=== PATIENT | female | born 1985 | race American Indian/Alaskan Native ===

== ENCOUNTER 2020-03-07 21:06 | Emergency (ER) | payer SELFPAY ==
[2020-03-07 22:39] VITALS: BP 116/71
[2020-03-07] MEDS ORDERED: dexAMETHasone 4 MG/ML VIAL IM ONE (23:45)
--- NOTE | 2020-03-07 23:46 | Emergency Department Report ---
Minor Respiratory - HPI Chief Complaint: Sore Throat Stated Complaint: THROAT PAIN CAN HARDLY TALK Time Seen by Provider: 03/07/20 23:41 Duration: 2 Days Pain Location: Throat Severity: moderate Minor Respiratory: Yes Sore Throat, Yes Able to Tolerate Fluids, No Rhinorrhea, No Ear Pain, No Cough, No Sick Contacts, No Hemoptysis, No Chest Pain, No Shortness of Breath, No Fever Other History: Patient is a 34-year-old -[place] female who comes to the emergency department with a 2-day history of sore throat. She initially states that she is having trouble talking. However, she then began speaking without difficulty. During initial exam she was sitting there with a cup of ice water drinking. She denies any fever or chills. She has no tachycardia or hypertension on arrival. She denies ill contacts. She has no hypoxia on triage exam. She is ambulatory in [facility]. ED Review of Systems ROS: Stated complaint: THROAT PAIN CAN HARDLY TALK Other details as noted in HPI Comment: All other systems reviewed and negative ED Past Medical Hx - Past Medical History Previous Medical History?: No - Surgical History Past Surgical History?: No - Family History Family history: no significant - Social History Smoking Status: Never Smoker Substance Use Type: None - Medications Home Medications: Home Medications Medication Instructions Recorded Confirmed Last Taken Type Amoxicillin [Trimox CAP] 500 mg PO BID #20 capsule 03/08/20 Unknown Rx Fluconazole [Diflucan TAB] 100 mg PO QDAY #2 tablet 03/08/20 Unknown Rx predniSONE [Deltasone] 20 mg PO DAILY #5 tablet 03/08/20 Unknown Rx Minor Respiratory Exam - Exam General: Vital signs noted. No distress. Alert and acting appropriately. HEENT: Yes Pharyngeal Erythema, Yes Moist Mucous Membranes, No Pharyngeal Exudates, No Rhinorrhea, No Conjuctival Injection, No Frontal Tenderness, No Maxillary Tenderness Ear: Neither TM Bulge, Neither TM Erythema, Neither EAC Pain, Neither EAC Discharge Neck: Yes Supple, No Adenopathy Lungs: Yes Good Air Exchange, No Wheezes, No Ronchi, No Stridor, No Cough, No Labored Respirations, No Retractions, No Use of Accessory Muscles, No Other Abnormal Lung Sounds Heart: Yes Regular, No Murmur Abdomen: Yes Normal Bowel Sounds, No Tenderness, No Peritoneal Signs Skin: No Rash, No Edema Neurologic: Alert and oriented, no deficits. Musculoskeletal: Unremarkable. ED Course Vital Signs 03/07/20 21:42 Temperature 98.9 F Pulse Rate 91 H Respiratory 18 Rate Blood Pressure 116/71 O2 Sat by Pulse 100 Oximetry ED Medical Decision Making - Medical Decision Making Patient complains of sore throat. She denies any chest pain or shortness of breath. Denies fever or chills. rapid strep pending. decadron/pcn IM in ER Vital Signs 03/07/20 21:42 Temperature 98.9 F Pulse Rate 91 H Respiratory 18 Rate Blood Pressure 116/71 O2 Sat by Pulse 100 Oximetry Uvula is midline. There is no exudates. Patient is taking p.o. She is controlling secretions. There is no trismus. Her exam is otherwise unremarkable. Patient being discharged home with discharge plan of care. Patient understands the importance of her plan of care. She verbalizes understanding of medications, follow-up and the importance of hydration. On discharge patient is nontoxic [id number] and in no acute distress. - Differential Diagnosis pharnyngitis strep v other pathogen Critical care attestation.: If time is entered above; I have spent that time in minutes in the direct care of this critically ill patient, excluding procedure time. ED Disposition Clinical Impression: Pharyngitis, Uvulitis Disposition: DC-01 TO HOME OR SELFCARE Is pt being admited?: No Does the pt Need Aspirin: No Condition: Stable Instructions: Upper Respiratory Infection, Adult, [id number] Additional Instructions: med as ordered today motrin or tylenol for pain stay well hydrated it is important that you follow up with pcp in 48 hours for recheck to be sure you are responding to meds Prescriptions: predniSONE [Deltasone] 20 mg PO DAILY #5 tablet Fluconazole [Diflucan TAB] 100 mg PO QDAY #2 tablet Amoxicillin [Trimox CAP] 500 mg PO BID #20 capsule Referrals: PIPER BROWN MD [Staff Physician] - 3-5 Days Time of Disposition: 23:59
[2020-03-07] MEDS ORDERED: PENICILLIN G BENZATHINE 1.2 MILLION UNIT/2 ML INJ IM ONE (23:53)
== END 2020-03-08 00:50 | disposition home or self-care (01) ==
LOC: ED 21:06
DX: J02.9 Acute pharyngitis, unspecified (principal); K12.2 Cellulitis and abscess of mouth; Z79.899 Other long term (current) drug therapy
CPT/HCPCS: 87116; 87430; 96372; 99283; J0561; J1100

== ENCOUNTER 2020-04-05 22:02 | Emergency (ER) | payer SELFPAY ==
[2020-04-05 22:17] VITALS: BP 137/90
== END 2020-04-05 22:17 | disposition left against medical advice (07) ==
LOC: ED 22:02
DX: A64 Unspecified sexually transmitted disease (principal); Z53.21 Procedure and treatment not carried out due to patient leaving prior to being seen by health care provider

== ENCOUNTER 2020-05-11 01:22 | Emergency (ER) | payer SELFPAY ==
[2020-05-11 04:31] LABS: Alanine Aminotransferase 12 units/L (7-56); Albumin 4.4 g/dL (3.9-5); Blood Urea Nitrogen 10 mg/dL (7-17); Calcium 9.3 mg/dL (8.4-10.2); Hemolysis Index 2
[2020-05-11 04:33] LABS: Bacteria,Urine 1+ /HPF (Negative); Bilirubin,Urine NEG (Negative); Blood,Urine SM (Negative); Color,Urine Yellow (Yellow); Mucus,Urine FEW /HPF; Protein,Urine <15 mg/dL mg/dL (Negative); Urobilinogen,Urine < 2.0 mg/dL (<2.0)
[2020-05-11 04:35] LABS: BUN/Creatinine Ratio 14
[2020-05-11 04:37] LABS: Hematocrit 37.7 % (30.3-42.9); Mean Corpuscular HGB Conc 34 % (30-34); Mean Corpuscular Volume 84 fl (79-97); Platelet Count 296 K/mm3 (140-440); Red Blood Count 4.52 M/mm3 (3.65-5.03); Red Cell Distribution Width 15.2 % (13.2-15.2)
[2020-05-11 05:25] LABS: Basophils % (Auto) 0.6 % (0.0-1.8); Eosinophils # (Auto) 0.1 K/mm3 (0.0-0.4); Eosinophils % (Auto) 1.1 % (0.0-4.3); Lymphocytes # (Auto) 2.8 K/mm3 (1.2-5.4); Lymphocytes % (Auto) 35.4 % (13.4-35.0); Monocytes # (Auto) 0.6 K/mm3 (0.0-0.8); Monocytes % (Auto) 7.4 % (0.0-7.3)
--- NOTE | 2020-05-11 06:20 | Emergency Department Report ---
ED General Adult HPI - General Chief complaint: Abdominal Pain Stated complaint: SHARP PAIN ON SIDE & REPRODUCTIVE AREA PUI?: No Time Seen by Provider: 05/11/20 06:06 Source: patient, RN notes reviewed, old records reviewed Mode of arrival: Ambulatory Limitations: No Limitations - History of Present Illness Initial comments: The patient was evaluated in the emergency department for symptoms described in the history of present illness. He/she was evaluated in the context of the global COVID-19 pandemic, which necessitated consideration that the patient might be at risk for infection with the virus that causes COVID-19. In stitutional protocols and algorithms that pertain to the evaluation of patients at risk for COVID-19 are in a state of rapid change based on information released by regulatory bodies including the CDC and federal and state organizations. These policies and algorithms were followed during the patient's care in the emergency department. Please note that these policies, procedures and recommendations changed on a rapid basis. This is a 34-year-old female. She is not known to myself previously. She does not have a local primary care doctor. She has a history of chlamydia that was diagnosed last year. She otherwise denies chronic medical conditions, and only surgical history is for section. During the entire history and physical examination, I am chaperoned and escorted by nurse Tan Ledesma The patient presents to the ER with a primary complaint of abdominal pain. She reports right upper quadrant pain for 1 year, left upper quadrant pain for 1 year, and lower/right lower quadrant abdominal pain for 2 days. No headache, neck pain, chest pain, shortness of breath, positive dysuria, negative for loss of taste or smell, no extremity complaints. Patient reports more than 20 sexual partners in the past 6 months. -: Gradual, hour(s), year(s) Location: abdomen Radiation: non-radiation Severity scale (0 -10): 6 Quality: aching Consistency: intermittent Improves with: rest Worsens with: movement - Related Data Previous Rx's Medication Instructions Recorded Last Taken Type Acetaminophen [Non-Aspirin Extra 500 mg PO Q6HR PRN #30 tablet 05/11/20 Unknown Rx Strength] DOXYCYCLINE Hyclate [Vibramycin] 100 mg PO Q12HR #20 capsule 05/11/20 Unknown Rx Ibuprofen [Motrin] 400 mg PO Q8H PRN #30 tablet 05/11/20 Unknown Rx Morphine Sulfate [Morphine Sulfate 7.5 mg PO Q6HR PRN #10 tablet 05/11/20 Unknown Rx IR] Ondansetron [Zofran Odt] 4 mg PO Q8HR PRN #20 tab.rapdis 05/11/20 Unknown Rx Allergies Allergy/AdvReac Type Severity Reaction Status Date / Time No Known Allergies Allergy Verified 04/05/20 22:17 ED Review of Systems ROS: Stated complaint: SHARP PAIN ON SIDE & REPRODUCTIVE AREA Other details as noted in HPI Constitutional: denies: fever Eyes: denies: eye discharge ENT: denies: throat pain, epistaxis Respiratory: denies: cough Cardiovascular: denies: chest pain Gastrointestinal: abdominal pain Genitourinary: dysuria Musculoskeletal: denies: back pain Skin: denies: lesions Neurological: denies: weakness Hematological/Lymphatic: denies: easy bleeding ED Past Medical Hx - Past Medical History Previous Medical History?: No - Surgical History Past Surgical History?: Yes Additional Surgical History: x1 - Social History Smoking Status: Current Every Day Smoker Substance Use Type: None - Medications Home Medications: Home Medications Medication Instructions Recorded Confirmed Last Taken Type Acetaminophen [Non-Aspirin Extra 500 mg PO Q6HR PRN #30 tablet 05/11/20 Unknown Rx Strength] DOXYCYCLINE Hyclate [Vibramycin] 100 mg PO Q12HR #20 capsule 05/11/20 Unknown Rx Ibuprofen [Motrin] 400 mg PO Q8H PRN #30 tablet 05/11/20 Unknown Rx Morphine Sulfate [Morphine Sulfate 7.5 mg PO Q6HR PRN #10 tablet 05/11/20 Unknown Rx IR] Ondansetron [Zofran Odt] 4 mg PO Q8HR PRN #20 tab.rapdis 05/11/20 Unknown Rx ED Physical Exam - General Limitations: No Limitations General appearance: alert, in no apparent distress - Head Head exam: Present: atraumatic, normocephalic - Eye Eye exam: Present: normal appearance, EOMI. Absent: nystagmus - ENT ENT exam: Present: normal exam, normal orophraynx, mucous membranes moist, normal external ear exam - Neck Neck exam: Present: normal inspection, full ROM. Absent: tenderness, meningismus - Respiratory Respiratory exam: Present: normal lung sounds bilaterally. Absent: respiratory distress, wheezes, rales, rhonchi, stridor, decreased breath sounds - Cardiovascular Cardiovascular Exam: Present: regular rate, normal rhythm, normal heart sounds. Absent: bradycardia, tachycardia, irregular rhythm, systolic murmur, diastolic murmur, rubs, gallop - GI/Abdominal GI/Abdominal exam: Present: soft, tenderness (The right lower quadrant is tender to deep palpation). Absent: distended, guarding, rebound, rigid, pulsatile mass - External exam: Present: normal external exam, other (Chaperoned by nurse Tan Ledesma) Speculum exam: Present: vaginal discharge, cervical discharge. Absent: erythema, vaginal bleeding Bi-manual exam: Present: cervical motion tendernes, adnexal tenderness, uterine tenderness - Extremities Exam Extremities exam: Present: normal inspection, full ROM, other (2+ pulses noted in the bilateral upper and lower extremities. There is no palpable cord. negative Homans sign. Muscular compartments are soft. The pelvis is stable.). Absent: pedal edema, calf tenderness - Back Exam Back exam: Present: normal inspection, full ROM. Absent: tenderness, CVA tenderness (R), CVA tenderness (L), paraspinal tenderness, vertebral tenderness - Neurological Exam Neurological exam: Present: alert, oriented X3, normal gait, other (No facial droop. Tongue midline. Extraocular movements intact bilaterally. Facial sens ation intact to light touch in V1, V2, V3 distribution bilaterally. 5 and a 5 strength in 4 extremities. Sensation intact to light touch in 4 extremities.). Absent: motor sensory deficit - Psychiatric Psychiatric exam: Present: normal affect, normal mood - Skin Skin exam: Present: warm, dry, intact, normal color. Absent: rash ED Course Vital Signs 05/11/20 05/11/20 05/11/20 03:02 06:05 07:21 Temperature 98.8 F Pulse Rate 73 77 Respiratory 16 18 16 Rate Blood Pressure 122/72 Blood Pressure 131/80 [Right] O2 Sat by Pulse 98 99 Oximetry 05/11/20 05/11/20 07:23 08:31 Temperature Pulse Rate 88 77 Respiratory 16 16 Rate Blood Pressure Blood Pressure 122/82 108/70 [Right] O2 Sat by Pulse 99 99 Oximetry - Reevaluation(s) Reevaluation #1: 05/11/20 06:59 Differential diagnosis, including but not limited to: Pelvic inflammatory disease, appendicitis, ovarian cyst, ovarian torsion, tubo-ovarian abscess Assessment and plan: 34-year-old female with abdominal pain, acute on chronic, with exquisite right lower quadrant tenderness, delia pus noted from gynecologic organs, very suggestive of pelvic inflammatory disease. We will start her empirically on antibiotic therapy. Wet prep, gonorrhea, chlamydia cultures have been ordered. We will treat the patient's symptoms aggressively, make her nothing by mouth, and place her on a threat monitoring analyst. We will obtain CT scan of the abdomen pelvis and pelvic ultrasound to exclude surgical pathology. I have discussed this plan of care with the patient, who verbalized understanding. Reevaluation #2: 05/11/20 08:01 Ultrasound, CT scan of the abdomen pelvis reviewed and appreciated. No acute surgical disease is identified. Bladder ultrasound findings are reviewed and appreciated. Urinalysis reviewed and appreciated. Suspect there may be a component of chlamydia cystitis. Patient tolerating liquid feeds at this time. Discharged with appropriate antibiotics, instructions to obtain from sexual contact, and follow-up with outpatient [facility]. Renal calculus asymptomatic, this is an incidental finding. Supportive care. Ovarian cyst appreciated, not suggestive of torsion. ED Medical Decision Making - Lab Data Result diagrams: 05/11/20 03:43 05/11/20 03:43 Vital Signs 05/11/20 05/11/20 03:02 06:05 Temperature 98.8 F Pulse Rate 73 77 Respiratory 16 18 Rate Blood Pressure 122/72 Blood Pressure 131/80 [Right] O2 Sat by Pulse 98 99 Oximetry Lab Results 05/11/20 05/11/20 05/11/20 Range/Units 03:43 03:43 03:43 WBC 8.0 (4.5-11.0) K/mm3 RBC 4.52 (3.65-5.03) M/mm3 Hgb 13.0 (10.1-14.3) gm/dl Hct 37.7 (30.3-42.9) % MCV 84 (79-97) fl MCH 29 (28-32) pg MCHC 34 (30-34) % RDW 15.2 (13.2-15.2) % Plt Count 296 (140-440) K/mm3 Lymph % (Auto) 35.4 H (13.4-35.0) % [place] % (Auto) 7.4 H (0.0-7.3) % Eos % (Auto) 1.1 (0.0-4.3) % Baso % (Auto) 0.6 (0.0-1.8) % Lymph # (Auto) 2.8 (1.2-5.4) K/mm3 [place] # (Auto) 0.6 (0.0-0.8) K/mm3 Eos # (Auto) 0.1 (0.0-0.4) K/mm3 Baso # (Auto) 0.0 (0.0-0.1) K/mm3 Add Manual Diff Complete Seg Neutrophils % 55.5 (40.0-70.0) % Nucleated RBC % Not Reportable Seg Neutrophils # 4.3 (1.8-7.7) K/mm3 WBC Morphology Not Reportable Hypersegmented Neuts Not Reportable Hyposegmented Neuts Not Reportable Hypogranular Neuts Not Reportable Smudge Cells Not Reportable Toxic Granulation Not Reportable Toxic Vacuolation Not Reportable Dohle Bodies Not Reportable Pelger-Huet Anomaly Not Reportable Adolph Rods Not Reportable Platelet Estimate Not Reportable Clumped Platelets Not Reportable Plt Clumps, EDTA Not Reportable Large Platelets Not Reportable Giant Platelets Not Reportable Platelet Satelliting Not Reportable Plt Morphology Comment Not Reportable RBC Morphology Not Reportable Dimorphic RBCs Not Reportable Polychromasia Not Reportable Hypochromasia Not Reportable Poikilocytosis Not Reportable Anisocytosis Not Reportable Microcytosis Not Reportable Macrocytosis Not Reportable Spherocytes Not Reportable Pappenheimer Bodies Not Reportable Sickle Cells Not Reportable Target Cells Not Reportable Tear Drop Cells Not Reportable Ovalocytes Not Reportable Helmet Cells Not Reportable Nevarez-Coppock Bodies Not Reportable [place] Rings Not Reportable Thatcher Cells Not Reportable Bite Cells Not Reportable Crenated Cell Not Reportable Elliptocytes Not Reportable Acanthocytes (Spur) Not Reportable Rouleaux Not Reportable Hemoglobin C Crystals Not Reportable Schistocytes Not Reportable Malaria parasites Not Reportable Tim Bodies Not Reportable Hem Pathologist Commnt Not Reportable Sodium 137 (137-145) mmol/L Potassium 4.0 (3.6-5.0) mmol/L Chloride 100.5 (98-107) mmol/L Carbon Dioxide 30 (22-30) mmol/L Anion Gap 11 mmol/L BUN 10 (7-17) mg/dL Creatinine 0.7 (0.6-1.2) mg/dL Estimated GFR > 60 ml/min BUN/Creatinine Ratio 14 % Glucose 87 (65-100) mg/dL Calcium 9.3 (8.4-10.2) mg/dL Total Bilirubin 0.30 (0.1-1.2) mg/dL AST 16 (5-40) units/L ALT 12 (7-56) units/L Alkaline Phosphatase 93 (35-129) units/L Total Protein 7.3 (6.3-8.2) g/dL Albumin 4.4 (3.9-5) g/dL Albumin/Globulin Ratio 1.5 % Lipase 23 (13-60) units/L HCG, Qual Negative (Negative) Urine Color (Yellow) Urine Turbidity (Clear) Urine pH (5.0-7.0) Ur Specific [place] (1.003-1.030) Urine Protein (Negative) mg/dL Urine Glucose (UA) (Negative) mg/dL Urine Ketones (Negative) mg/dL Urine Blood (Negative) Urine Nitrite (Negative) Urine Bilirubin (Negative) Urine Urobilinogen (<2.0) mg/dL Ur Leukocyte Esterase (Negative) Urine WBC (Auto) (0.0-6.0) /HPF Urine RBC (Auto) (0.0-6.0) /HPF U Epithel Cells (Auto) (0-13.0) /HPF Urine Bacteria (Auto) (Negative) /HPF Urine Mucus /HPF 05/11/20 Range/Units Unknown WBC (4.5-11.0) K/mm3 RBC (3.65-5.03) M/mm3 Hgb (10.1-14.3) gm/dl Hct (30.3-42.9) % MCV (79-97) fl MCH (28-32) pg MCHC (30-34) % RDW (13.2-15.2) % Plt Count (140-440) K/mm3 Lymph % (Auto) (13.4-35.0) % [place] % (Auto) (0.0-7.3) % Eos % (Auto) (0.0-4.3) % Baso % (Auto) (0.0-1.8) % Lymph # (Auto) (1.2-5.4) K/mm3 [place] # (Auto) (0.0-0.8) K/mm3 Eos # (Auto) (0.0-0.4) K/mm3 Baso # (Auto) (0.0-0.1) K/mm3 Add Manual Diff Seg Neutrophils % (40.0-70.0) % Nucleated RBC % Seg Neutrophils # (1.8-7.7) K/mm3 WBC Morphology Hypersegmented Neuts Hyposegmented Neuts Hypogranular Neuts Smudge Cells Toxic Granulation Toxic Vacuolation Dohle Bodies Pelger-Huet Anomaly Adolph Rods Platelet Estimate Clumped Platelets Plt Clumps, EDTA Large Platelets Giant Platelets Platelet Satelliting Plt Morphology Comment RBC Morphology Dimorphic RBCs Polychromasia Hypochromasia Poikilocytosis Anisocytosis Microcytosis Macrocytosis Spherocytes Pappenheimer Bodies Sickle Cells Target Cells Tear Drop Cells Ovalocytes Helmet Cells Nevarez-Coppock Bodies [place] Rings Thatcher Cells Bite Cells Crenated Cell Elliptocytes Acanthocytes (Spur) Rouleaux Hemoglobin C Crystals Schistocytes Malaria parasites Tim Bodies Hem Pathologist Commnt Sodium (137-145) mmol/L Potassium (3.6-5.0) mmol/L Chloride (98-107) mmol/L Carbon Dioxide (22-30) mmol/L Anion Gap mmol/L BUN (7-17) mg/dL Creatinine (0.6-1.2) mg/dL Estimated GFR ml/min BUN/Creatinine Ratio % Glucose (65-100) mg/dL Calcium (8.4-10.2) mg/dL Total Bilirubin (0.1-1.2) mg/dL AST (5-40) units/L ALT (7-56) units/L Alkaline Phosphatase (35-129) units/L Total Protein (6.3-8.2) g/dL Albumin (3.9-5) g/dL Albumin/Globulin Ratio % Lipase (13-60) units/L HCG, Qual (Negative) Urine Color Yellow (Yellow) Urine Turbidity Slightly-cloudy (Clear) Urine pH 5.0 (5.0-7.0) Ur Specific [place] 1.021 (1.003-1.030) Urine Protein <15 mg/dl (Negative) mg/dL Urine Glucose (UA) Neg (Negative) mg/dL Urine Ketones Neg (Negative) mg/dL Urine Blood Sm (Negative) Urine Nitrite Neg (Negative) Urine Bilirubin Neg (Negative) Urine Urobilinogen < 2.0 (<2.0) mg/dL Ur Leukocyte Esterase Neg (Negative) Urine WBC (Auto) 6.0 (0.0-6.0) /HPF Urine RBC (Auto) 1.0 (0.0-6.0) /HPF U Epithel Cells (Auto) 6.0 (0-13.0) /HPF Urine Bacteria (Auto) 1+ (Negative) /HPF Urine Mucus Few /HPF - Radiology Data Radiology results: pending, report reviewed, image reviewed CT OF THE ABDOMEN AND PELVIS WITH INTRAVENOUS CONTRAST INDICATION / CLINICAL INFORMATION: Right lower quadrant pain. TECHNIQUE: The patient received 100 cc Omnipaque [address] scans at this location are performed using CT dose reduction for ALARA by means of automated exposure control. COMPARISON: None available. FINDINGS: ABDOMEN: The liver, spleen, gallbladder, bile ducts, pancreas, adrenal glands and left kidney demonstrate no significant abnormalit y. There is a 3 mm nonobstructive calculus in the upper pole of the right kidney. There is a 2 cm simple cyst in the lower pole of the right kidney. The bowel is normal without evidence of obstruction, wall thickening or free air. No adenopathy is seen. The lung bases are clear. PELVIS: The distal ureters and urinary bladder are normal. The uterus and adnexal regions are unremarkable. A normal appendix is present and there is no evidence of diverticulitis. No abnormal mass or fluid collection is seen. I do not identify a hernia. No acute osseous abnormality is present. IMPRESSION: 1. No acute abnormality is identified. There is no CT evidence of acute appendicitis. 2. Small nonobstructive right renal calculus. Signer Name: Casper Garay MD Signed: 05/11/2020 6:19 AM Workstation Name: [id number] ULTRASOUND PELVIS DUPLEX DOPPLER COMPLETE INDICATION / CLINICAL INFORMATION: rlq pelvic pain. TECHNIQUE: Transabdominal. Duplex Color Doppler used: Yes. COMPARISON: CT abdomen and pelvis with contrast performed earlier today. FINDINGS: UTERUS: Present. - Appearance (if present): No significant abnormality. - Size in cm (if present): 8.1 x 4.3 x 4.6. - Endometrial Complex (if present): No significant abnormality.. Thickness in cm (if measured) = 0.9 - Mass lesions: None. - Additional findings: None. RIGHT ADNEXA: A 1.3 cm simple ovarian cyst is identified. Normal color Doppler blood flow. 3.1 x 1.8 x 1.6 cm. LEFT ADNEXA: No significant ovarian cyst or mass. Normal color Doppler b lood flow. 2.0 x 1.4 x 1.7 cm. URINARY BLADDER: There is a mild degree of debris in the bladder. No obvious bladder mass or impressive wall thickening. FREE FLUID: None. ADDITIONAL FINDINGS: None. IMPRESSION: 1.3 cm right ovarian cyst. The uterus and left ovary are unremarkable. No evidence for torsion. Debris is identified within the bladder. Consider cystitis. Signer Name: Brad Velasquez Jr, MD Signed: 05/11/2020 6:49 AM Workstation Name: [id number] Critical care attestation.: If time is entered above; I have spent that time in minutes in the direct care of this critically ill patient, excluding procedure time. ED Disposition Clinical Impression: Pelvic inflammatory disease, Acute abdominal pain in right lower quadrant, Renal calculus Ovarian cyst Qualifiers: Laterality: right Qualified Code(s): N83.201 - Unspecified ovarian cyst, right side Disposition: TO HOME OR SELFCARE Is pt being admited?: No Does the pt Need Aspirin: No Condition: Good Instructions: Pelvic Inflammatory Disease, Abdominal Pain (ED) Additional Instructions: As we discussed, with highly suspect pelvic inflammatory disease. We typically treat young females with unexplained lower abdominal pain to protect your ability to have children safely in the future. Cultures were sent today, and results will be available next 3-5 days. Please have your primary care doctor call the medical records department to obtain your culture results. Take the antibiotic therapy as directed. Take the nausea medication and pain medication as directed. I recommend outpatient testing for sexually transmitted diseases, including hepatitis, syphilis and HIV. I also recommend that you abstain from sexual activity until you have completed her antibiotic therapy, a physician states that it is safe for you to resume sexual activity, and any partners that you have been sexually active with have been tested/treated/evaluated for sexual transmitted diseases. Please follow-up with physician within 3-5 days. I recommend that you return to the ER right away with worsening pain, migration of pain, intractable nausea/vomiting, inability tolerate liquid feeds. Do not take metformin medication for the next 2 days, if patient takes this medication. Prescriptions: Morphine Sulfate [Morphine Sulfate IR] 7.5 mg PO Q6HR PRN #10 tablet PRN Reason: Pain , Severe (7-10) Ibuprofen [Motrin] 400 mg PO Q8H PRN #30 tablet PRN Reason: Pain Acetaminophen [Non-Aspirin Extra Strength] 500 mg PO Q6HR PRN #30 tablet PRN Reason: Pain , Severe (7-10) DOXYCYCLINE Hyclate [Vibramycin] 100 mg PO Q12HR #20 capsule Ondansetron [Zofran Odt] 4 mg PO Q8HR PRN #20 tab.rapdis PRN Reason: Nausea Referrals: [facility] [Provider Group] - 3-5 Days [facility] [Provider Group] - 3-5 Days [facility] [Provider Group] - 3-5 Days
[2020-05-11] MEDS ORDERED: ONDANSETRON 4 MG/2 ML INJ IV ONE (06:39)
[2020-05-11] MEDS ORDERED: SODIUM CHLORIDE 0.9% 1000 ML 1,000 ML IV ONE (06:39)
[2020-05-11] MEDS ORDERED: MORPHINE 4 MG/1 ML INJ IV ONE (06:39)
[2020-05-11] MEDS ORDERED: DOXYCYCLINE 100 MG CAP PO ONE (06:42)
--- NOTE | 2020-05-11 07:23 | Cat Scan Report ---
CT OF THE ABDOMEN AND PELVIS WITH INTRAVENOUS CONTRAST INDICATION / CLINICAL INFORMATION: Right lower quadrant pain. TECHNIQUE: The patient received 100 cc Omnipaque [address] scans at this location are performed using CT dose reduction for ALARA by means of automated exposure control. COMPARISON: None available. FINDINGS: ABDOMEN: The liver, spleen, gallbladder, bile ducts, pancreas, adrenal glands and left kidney demonst rate no significant abnormality. There is a 3 mm nonobstructive calculus in the upper pole of the rig ht kidney. There is a 2 cm simple cyst in the lower pole of the right kidney. The bowel is normal wit hout evidence of obstruction, wall thickening or free air. No adenopathy is seen. The lung bases are clear. PELVIS: The distal ureters and urinary bladder are normal. The uterus and adnexal regions are unremar kable. A normal appendix is present and there is no evidence of diverticulitis. No abnormal mass or f luid collection is seen. I do not identify a hernia. No acute osseous abnormality is present. IMPRESSION: 1. No acute abnormality is identified. There is no CT evidence of acute appendicitis. 2. Small nonobstructive right renal calculus. Signer Name: Casper Garay MD Signed: 05/11/2020 7:19 AM Workstation Name: [id number]
--- NOTE | 2020-05-11 07:53 | Ultrasound Report ---
ULTRASOUND PELVIS DUPLEX DOPPLER COMPLETE INDICATION / CLINICAL INFORMATION: rlq pelvic pain. TECHNIQUE: Transabdominal. Duplex Color Doppler used: Yes. COMPARISON: CT abdomen and pelvis with contrast performed earlier today. FINDINGS: UTERUS: Present. - Appearance (if present): No significant abnormality. - Size in cm (if present): 8.1 x 4.3 x 4.6. - Endometrial Complex (if present): No significant abnormality.. Thickness in cm (if measured) = 0.9 - Mass lesions: None. - Additional findings: None. RIGHT ADNEXA: A 1.3 cm simple ovarian cyst is identified. Normal color Doppler blood flow. 3.1 x 1.8 x 1.6 cm. LEFT ADNEXA: No significant ovarian cyst or mass. Normal color Doppler blood flow. 2.0 x 1.4 x 1.7 cm . URINARY BLADDER: There is a mild degree of debris in the bladder. No obvious bladder mass or impressi ve wall thickening. FREE FLUID: None. ADDITIONAL FINDINGS: None. IMPRESSION: 1.3 cm right ovarian cyst. The uterus and left ovary are unremarkable. No evidence for torsion. Debris is identified within the bladder. Consider cystitis. Signer Name: Brad Velasquez Jr, MD Signed: 05/11/2020 7:49 AM Workstation Name: [id number]
[2020-05-11 08:32] VITALS: BP 108/70
== END 2020-05-11 08:32 | disposition home or self-care (01) ==
LOC: ED 01:22
DX: N73.9 Female pelvic inflammatory disease, unspecified (principal); N20.0 Calculus of kidney; N83.201 Unspecified ovarian cyst, right side; F17.200 Nicotine dependence, unspecified, uncomplicated; Z79.899 Other long term (current) drug therapy
CPT/HCPCS: 36415; 74177; 80053; 81001; 83690; 84703; 85007; 85025; 87210; 87591; 93975; 96361; 96365; 96375; 99284; J0696; J2270; J2405; J7030; Q9967